=== PATIENT | female | born 1990 | race Caucasian/White ===

== ENCOUNTER 2018-04-12 12:19 | Outpatient (CLI) | payer OTHER ==
--- NOTE | 2018-04-12 15:24 | RAD ---
LEFT SHOULDER THREE VIEWS: HISTORY: Shoulder pain x2 weeks. FINDINGS: The AC and glenohumeral joints are normal in appearance. There are no signs of fracture. IMPRESSION: Unremarkable left shoulder. POS: [id number]
== END 2018-04-12 12:20 | disposition home or self-care (01) ==
LOC: BICRAD 12:19
PROVIDERS: ATTEND Family Medicine
DX: M25.512 Pain in left shoulder (principal); G89.29 Other chronic pain